=== PATIENT | female | born 1975 | race Caucasian/White ===

== ENCOUNTER → 2017-07-30 | Outpatient (CLI) | payer BC | LOC: CAT 09:44 → ULTRA 13:45 → EDSTATUS 14:51 → CAT 15:10 | DX: J45.30 Mild persistent asthma, uncomplicated (principal); J84.89 Other specified interstitial pulmonary diseases; R06.02 Shortness of breath ==

== ENCOUNTER → 2021-05-07 | Outpatient (CLI) | payer BC | LOC: RAD 12:24 | PROVIDERS: ATTEND Internal Medicine Pulmonary Disease | DX: J45.20 Mild intermittent asthma, uncomplicated (principal); R05.9 Cough, unspecified ==